=== PATIENT | male | born 1990 ===

== ENCOUNTER 2024-07-16 17:57 | Emergency (ER) | payer SELFPAY ==
[~2024-07-16] VITALS: Ht 175.3 cm; Wt 95.3 kg
[2024-07-16 18:15] VITALS: TEMP 97.4
[2024-07-16 19:20] VITALS: PULSE 101; RESP 16
[2024-07-16] MEDS ORDERED: ULTRAM 50MG50 MG PO (19:23)
[2024-07-16] MEDS ORDERED: NAPROSYN500 MG PO (19:23)
[2024-07-16] MEDS: ONDANSETRON HCL INJ 2MG/ML 2ML 2 MG/ML VIAL IV STA (19:26)
[2024-07-16] MEDS: Morphine 4mg INJECTION 4 MG/ML INJ IV ONE (19:26)
[2024-07-16 20:05] VITALS: BP 137/88; PULSE 98; RESP 16; O2SAT 97
== END 2024-07-16 19:52 | disposition home or self-care (01) ==
LOC: ER 18:02
DX: M75.102 Unspecified rotator cuff tear or rupture of left shoulder, not specified as traumatic (principal)
CPT/HCPCS: 73030; 99284; J2270; J2405